=== PATIENT | male | born 1970 | race Caucasian/White ===

== ENCOUNTER → 2018-05-16 14:43 | Outpatient (CLI) | payer MEDICARE, SELFPAY | PROVIDERS: Family Provider Internal Medicine; PCP Internal Medicine; Visit Provider Chiropractor | DX: S13.4XXA Sprain of ligaments of cervical spine, initial encounter (principal); S33.5XXA Sprain of ligaments of lumbar spine, initial encounter; X58.XXXA Exposure to other specified factors, initial encounter | CPT/HCPCS: 72050; 72110 ==

== ENCOUNTER 2019-01-05 15:00 | Outpatient (RCR) | payer MEDICARE, SELFPAY ==
--- NOTE | 2018-08-22 12:56 | HP.OTEVAL ---
Patient's Visit Information ROSY HAHN Jr. is a 48 year old M, referred to Occupational Therapy by AVERY MARIA, with a diagnosis of Laceration of R hand without foreign body. Date of Evaluation: 08/18/18 Occupational Therapist: Ashleigh Baird, ORLANDOR/Vandana, CHT - Subjective Subjective: patient arrives and states that DIP joints of 2nd, 3rd, and 4th digits got sliced off while working on an airplane. This occured about 1 month ago. patient is on disability. - Pain R hand 3 Pain Intensity Range: 0, 1, 2, 3, 4, 5, 6, 7, 8, 9, 10 - Objective Objective/Observation: patient has stitches at the tips of his 3rd, 4th, and 5th digits and swelling throughout the fingers and hand. - ROM ROM Comments: 2nd: MP 0/75, PIP 0/25. 3rd: MP 0/77, PIP: 0/32. 4th: MP 0/75, PIP 0/59, DIP 0/25. 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 by completing strengthening exercises and stretches in order to complete BADL?s and IADL?s. Patient will improve lateral and tripod grasps by 10 lbs. by completing strengthening and stretching exercises in order to complete BADL?s and IADL?s. Goal:: Patient will increase ROM in MP and PIP joints of 3rd, 4th and 5th digits by 15 degrees by completing strengthening and stretching exercises in order to complete BADL?s and IADL?s. Goal:: Patient will have decreased swelling and report overall decrease in pain of <5 in order to complete BADL?s and IADL?s. Goal:: Patient will demo decreased hypertensitivity in fingertips following desensitization techniques for increased I and safety with BADL's and IADL's. - Rehabilitation General Assessment: Patient arrives with laceration of R hand on the 2nd, 3rd, and 4th digits of the DIP joints. Pt. reports this occured while putting together an airplane and the DIP's of his fingers got chopped off. Patient presents with decreased strength, ROM, increased pain and swelling, hypersensitivity, and decreased ability to complete BADL's and IADL's. Pt. will benefit from OT services 2-3x/wk for 8 wks. Today OT provided place and hold exercises and blocking to the digits. OT educated pt. on HEP (blocking, place and hold, tendon glides). Rehabilitation Potential: Good - Anticipated Interventions Anticipated Interventions: A/AAROM/PROM, Strengthening, Triggerpoint Release, Desensitization, Modalities, Joint Protection/Energy Conservation, Ergonomic Education, ADL Training, Home Program - Visit Plan Frequency: 2-3x /Week Duration: 8 weeks TEXT: Thank you for the opportunity to evaluate your patient. For Medicare and Medicare HMO plans, please review the plan of care and approve it. It will need to be FAXED BACK to us at [phone] for Medicare purposes. Please let me know if there are questions or concerns regarding this plan of care. Physician Signature: Date:
--- NOTE | 2018-09-05 16:53 | HP.OTEVAL ---
Patient's Visit Information ROSY HAHN Jr. is a 48 year old M, referred to Occupational Therapy by AVERY MARIA, with a diagnosis of Laceration of R hand without foreign body. Date of Evaluation: 08/18/18 Occupational Therapist: Ashleigh Baird, ORLANDOR/Vandana, CHT - Subjective Subjective: patient arrives and states that DIP joints of 2nd, 3rd, and 4th digits got sliced off while working on an airplane. This occured about 1 month ago. patient is on disability. - Pain R hand 0 Pain Intensity Range: 0, 1, 2, 3, 4, 5, 6, 7, 8, 9, 10 - Objective Objective/Observation: patient has stitches at the tips of his 3rd, 4th, and 5th digits and swelling throughout the fingers and hand. - ROM ROM Comments: 2nd: MP 0/75, PIP 0/25. 3rd: MP 0/77, PIP: 0/32. 4th: MP 0/75, PIP 0/59, DIP 0/25. 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 by completing strengthening exercises and stretches in order to complete BADL?s and IADL?s. Patient will improve lateral and tripod grasps by 10 lbs. by completing strengthening and stretching exercises in order to complete BADL?s and IADL?s. Goal:: Patient will increase ROM in MP and PIP joints of 3rd, 4th and 5th digits by 15 degrees by completing strengthening and stretching exercises in order to complete BADL?s and IADL?s. Goal:: Patient will have decreased swelling and report overall decrease in pain of <5 in order to complete BADL?s and IADL?s. Goal:: Patient will demo decreased hypertensitivity in fingertips following desensitization techniques for increased I and safety with BADL's and IADL's. - Rehabilitation General Assessment: Patient arrives with laceration of R hand on the 2nd, 3rd, and 4th digits of the DIP joints. Pt. reports this occured while putting together an airplane and the DIP's of his fingers got chopped off. Patient presents with decreased strength, ROM, increased pain and swelling, hypersensitivity, and decreased ability to complete BADL's and IADL's. Pt. will benefit from OT services 2-3x/wk for 8 wks. Today OT provided place and hold exercises and blocking to the digits. OT educated pt. on HEP (blocking, place and hold, tendon glides). Rehabilitation Potential: Good - Anticipated Interventions Anticipated Interventions: A/AAROM/PROM, Strengthening, Triggerpoint Release, Desensitization, Modalities, Joint Protection/Energy Conservation, Ergonomic Education, ADL Training, Home Program - Visit Plan Frequency: 2-3x /Week Duration: 8 weeks TEXT: Thank you for the opportunity to evaluate your patient. For Medicare and Medicare HMO plans, please review the plan of care and approve it. It will need to be FAXED BACK to us at [phone] for Medicare purposes. Please let me know if there are questions or concerns regarding this plan of care. Physician Signature: Date:
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
--- NOTE | 2019-01-05 15:26 | HP.OTDCSUM ---
HP - OT D/C Summary It has been my pleasure to treat ROSY HAHN Jr. under orders from AVERY MARIA, for the diagnosis of Laceration of R hand without foreign body for a total of 9 visit(s). Please see the following information for a summary of their discharge status. - Overall Improvement % Improvement: 90 - Objective Objective/Function: IF PIP 0/90. MF PIP 0/95. RF PIP 0/95. right ballistics tester 75# left 100#. right lateral pinch 22#. pt demo a functional ROM and ballistics tester strength- pt ed. on k-tape around joints to assist with joint edema. - Goals Patient Goals: Regain Strength, Decrease Pain, Decrease Swelling/Stiffness, Use Hand/Wrist/Arm Normally Again, Increase ROM, Be More Independent in ADLS, Resume Former Household Responsibilities (Cooking,Cleaning,Yard, etc.), Resume Hobbies Goal:: Patient will increase overall ballistics tester strength by 20 lbs. by completing strengthening exercises and stretches in order to complete BADL?s and IADL?s. Patient will improve lateral and tripod grasps by 10 lbs. by completing strengthening and stretching exercises in order to complete BADL?s and IADL?s. Goal:: Patient will increase ROM in MP and PIP joints of 3rd, 4th and 5th digits by 15 degrees by completing strengthening and stretching exercises in order to complete BADL?s and IADL?s. Goal:: Patient will have decreased swelling and report overall decrease in pain of <5 in order to complete BADL?s and IADL?s. Goal:: Patient will demo decreased hypertensitivity in fingertips following desensitization techniques for increased I and safety with BADL's and IADL's. - Plan Plan: D/C - D/C Information Discharge Comments: pt demo great ROM and functional strength following right IF and MF tip amputation. pt has met functional goals and is D/C at this time. If there are questions or concerns regarding this patient's occupational therapy, please fell free to call me at [phone]. Thank you for the referral of this patient. Sincerely, Ashleigh Baird, OTR/L, CHT
== END 2019-01-05 19:00 | disposition home or self-care (01) ==
LOC: OT 15:00
PROVIDERS: Family Provider Nurse Practitioner Family; PCP Nurse Practitioner Family
DX: M25.641 Stiffness of right hand, not elsewhere classified (principal)
CPT/HCPCS: 97110; 97140; 97166; 97530

== ENCOUNTER → 2020-07-03 10:55 | Outpatient (CLI) | payer MEDICARE, MEDICAID, SELFPAY ==
[2020-06-24 16:21] VITALS: BMI 25.7
--- NOTE | 2020-07-03 10:59 | MRI_ITS ---
STUDY: MRI LEFT WRIST WITHOUT CONTRAST REASON FOR EXAM: Left wrist pain in the bases of the metacarpals, mainly at the first and fifth metacarpals, injury 2 weeks ago. TECHNIQUE: Standardized fat and water weighted pulse sequences were obtained in all 3 orthogonal planes. COMPARISON: Radiographs 06/24/2020. FINDINGS: Normal visualized distal radius and ulna. Normal distal radioulnar articulation (DRUJ). There is a very small central perforation of the radial aspect of the triangular fibrocartilage (inversion recovery coronal image 13). There is a bone contusion of the distal pole of the scaphoid (inversion recovery coronal images 13, 14). There is a bone contusion of the trapezium (inversion recovery coronal images 10-14). There are small cysts in the lunate and triquetrum. Normal radiocarpal, intercarpal and midcarpal articulations. Normal pisotriquetral articulation. Normal visualized interosseous scapholunate ligament. Normal extensor tendons. Normal flexor tendons. Normal carpal tunnel with a normal median nerve. Normal carpometacarpal articulation of the thumb. Normal second through fifth carpometacarpal articulations. There is a small bone contusion of the radial base of the second metacarpal (inversion recovery coronal images 16, 17). There is mild chronic healed fracture deformity of the proximal fifth metacarpal (T1 coronal image 13). There is mild edema in the dorsal subcutis adipose space. MRI/Upper Ext Joint Only(Routine) IMPRESSION: Bone contusions of the distal pole of the scaphoid, trapezium and second metacarpal base. Very small central perforation of the radial aspect of the triangular fibrocartilage. Mild chronic healed fracture deformity of the fifth metacarpal. Electronically Signed: Fredy Elizondo MD at 13:34 EDT Tel , Service support ,
== END ==
PROVIDERS: PCP Nurse Practitioner Family; Referring Provider Orthopaedic Surgery; Visit Provider Orthopaedic Surgery
DX: S66.902A Unspecified injury of unspecified muscle, fascia and tendon at wrist and hand level, left hand, initial encounter (principal); S62.357A Nondisplaced fracture of shaft of fifth metacarpal bone, left hand, initial encounter for closed fracture
CPT/HCPCS: 73221

== ENCOUNTER 2023-03-31 10:00 | Outpatient (RCR) | payer MEDICARE, MEDICAID, SELFPAY ==
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
--- NOTE | 2023-05-14 14:02 | HP.PT.NRP ---
Patient Information Patient Information: ROSY HAHN Jr. was seen in my office for initial evaluation on 02/22/23. The following Plan of Care was established for this patient: POC Established Initial Frequency: 2x /Week Initial Duration: 4 Weeks Anticipated Interventions Patient/Client Instruction: Educate patient on: Condition and Plan of Care For the Purpose of:: To decrease pain, To increase ROM, To improve nutrient delivery to tissue, To improve muscle performance and motor function and To increase tolerance to activity/condition/position Therapeutic Exercise to Include: Strength training, Flexibilty training, Passive ROM, Active ROM and Scapular Strength/Stabilization For the Purpose of:: To decrease pain, To increase ROM, To improve nutrient delivery to tissue, To improve muscle performance and motor function, To increase tolerance to activity/condition/position and To improve ability of physical actions for home/community/work/leisure Manual Therapy Techniques to Include: Mobilization, Passive ROM and Soft tissue mobilization For the Purpose of:: To decrease pain, To increase ROM and To improve nutrient delivery to tissue TENS: Yes Thermo therapy (hot pack): Yes For the Purpose of:: To decrease pain Last Seen Last Seen: This patient was last seen in our office 04/02/23. Pertinent comments regarding their Physical therapy will appear below: Pt seen 9 visits of POC but was not seeing improvement according to his notes, he did not schedule or attend his reevaluation. At this point, it has been over a month and I will discontinue him from my care. At this point I will be discontinuing this patient from physical therapy. I would be happy to see this patient again in the future if found appropriate by the physician. Thank you! Julio Batista, DPT, OCS, CSCS Balance/Gait/Functional tests Balance/Special Test Scores Quick DASH Score: 47.7260
== END 2023-03-31 19:00 | disposition home or self-care (01) ==
LOC: PT 10:00
PROVIDERS: PCP Nurse Practitioner Family; Referring Provider Nurse Practitioner Family; Visit Provider Nurse Practitioner Family
DX: M25.511 Pain in right shoulder (principal); M25.512 Pain in left shoulder
CPT/HCPCS: 97110; 97140; 97162

== ENCOUNTER → 2024-04-19 | Outpatient (CLI) | payer MEDICARE, MEDICAID, SELFPAY ==
--- NOTE | 2024-04-19 15:41 | MRI_ITS ---
STUDY: MRI RIGHT KNEE REASON FOR EXAM: Male, 54 years old. Right knee contusion 3-4 months ago. Feels unstable, like there is fluid in knee. Pain. Evaluate for medial meniscal tear. TECHNIQUE: Standardized fat and water weighted pulse sequences were obtained in all 3 orthogonal planes. COMPARISON: Right knee radiographs dated 03/02/2024. FINDINGS: There is a horizontal-oblique undersurface tear of the posterior horn of the medial meniscus (sagittal PD series 4 images 31-32). Normal hyaline cartilage of the medial femorotibial compartment. Normal medial femoral condyle and tibial plateau. Normal medial collateral ligamentous complex (MCL). Normal distal semimembranosus, gracilis and semitendinosus tendons. Normal lateral meniscus. Normal hyaline cartilage of the lateral femorotibial compartment. Normal lateral femoral condyle and tibial plateau. Normal proximal tibiofibular articulation. Normal lateral collateral (fibular) ligament. Normal popliteus tendon. Normal biceps femoris tendon. Normal anterior cruciate ligament (ACL). Normal posterior cruciate ligament (PCL). Normal congruent patellofemoral articulation. Normal hyaline cartilage of the patellofemoral compartment. Normal medial and lateral patellar retinaculum. Normal quadriceps tendon. Normal patellar tendon. Normal Hoffa''s fat pad. There is a tiny joint effusion. There is a small multiseptated popliteal cyst dissecting superiorly. The soft tissues are unremarkable. The otherwise visualized osseous structures are unremarkable. MRI/Lower Ext Joint Only (Routine) IMPRESSION: Horizontal-oblique undersurface tear of the posterior horn of the medial meniscus. Tiny joint effusion. Small multiseptated popliteal cyst dissecting superiorly. Electronically Signed: Spenser Julian MD at 9:08 EDT ,
== END | disposition home or self-care (01) ==
LOC: MRI 15:35
PROVIDERS: PCP Nurse Practitioner Family; Referring Provider Orthopaedic Surgery Sports Medicine; Visit Provider Orthopaedic Surgery Sports Medicine
DX: M25.461 Effusion, right knee (principal); M17.11 Unilateral primary osteoarthritis, right knee; M70.41 Prepatellar bursitis, right knee; M25.561 Pain in right knee
CPT/HCPCS: 73721